=== PATIENT | male | born 2000 | race American Indian/Alaskan Native ===

== ENCOUNTER 2019-08-23 11:05 | Emergency (ER) | payer SELFPAY ==
[2019-08-23 11:25] VITALS: BP 144/87
[2019-08-23 11:51] LABS: Bilirubin,Urine NEG (Negative); Blood,Urine NEG (Negative); Color,Urine Yellow (Yellow); Hyaline Casts,Urine 1 /LPF; Mucus,Urine 3+ /HPF; Urobilinogen,Urine < 2.0 mg/dL (<2.0)
[2019-08-23 11:58] LABS: Amphetamine Screen,Urine PRESUMPTIVE NEGATIVE; Benzodiazepines Screen,Urine PRESUMPTIVE NEGATIVE; Cocaine Screen,Urine PRESUMPTIVE NEGATIVE; Methadone Screen,Urine PRESUMPTIVE NEGATIVE; Opiate Screen,Urine PRESUMPTIVE NEGATIVE
[2019-08-23 12:21] LABS: Cannabinoid Screen,Urine PRESUMPTIVE POSITIVE
[2019-08-23 12:29] LABS: Basophils # (Auto) 0.1 K/mm3 (0.0-0.1); Basophils % (Auto) 0.7 % (0.0-1.8); Hematocrit 45.9 % (35.5-45.6); Hemoglobin 15.4 gm/dl (11.8-15.2); Lymphocytes # (Auto) 1.1 K/mm3 (1.2-5.4); Lymphocytes % (Auto) 14.5 % (13.4-35.0); Mean Corpuscular HGB Conc 34 % (32-34); Mean Corpuscular Volume 95 fl (84-94); Monocytes # (Auto) 0.5 K/mm3 (0.0-0.8); Monocytes % (Auto) 6.5 % (0.0-7.3); Platelet Count 162 K/mm3 (140-440); Red Blood Count 4.81 M/mm3 (3.65-5.03); Red Cell Distribution Width 14.2 % (13.2-15.2)
[2019-08-23 12:56] LABS: BUN/Creatinine Ratio 11; Blood Urea Nitrogen 13 mg/dL (9-20); Calcium 9.5 mg/dL (8.4-10.2); Hemolysis Index 11
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
== END 2019-08-23 17:52 ==
LOC: ED 11:05
DX: F23 Brief psychotic disorder (principal); F12.10 Cannabis abuse, uncomplicated; Z88.1 Allergy status to other antibiotic agents; Z79.899 Other long term (current) drug therapy
CPT/HCPCS: 36415; 80048; 80307; 80320; 81001; 85025; G0480

== ENCOUNTER 2020-05-01 16:27 | Emergency (ER) | payer SELFPAY ==
--- NOTE | 2020-05-01 17:33 | Emergency Department Report ---
HPI - General Chief Complaint: Psych Time Seen by Provider: 05/01/20 17:21 - HPI HPI: This is a 20-year-old -Irish male presents to the emergency department for a mental health evaluation. Patient was brought in by [facility] and PD after he was found leaning up against a car at a car dealership, nonverbal. The patient's mother is currently at bedside and says that she brought him in yesterday morning to be seen for her concerns of psychosis but he left prior to seeing a healthcare provider and "I did not see him again until now." It is unknown where the patient went all night until he was found at the car dealership. Mom says that he has previously been diagnosed with schizophrenia after being transported to [facility]. I did see this patient in August of this year for some acute psychosis. The patient is not on any medication. The patient is a poor historian secondary to his current medical and/or psychiatric condition as he is nonverbal. ED Past Medical Hx - Past Medical History Hx Psychiatric Treatment: (possible schizophrenia?) - Social History Smoking Status: Unknown if ever smoked ED Review of Systems ROS: Stated complaint: AMS Other details as noted in HPI Comment: Unobtainable due to pts medical conditions Physical Exam - Physical Exam Vital Signs: Vital Signs 05/01/20 16:39 Temperature 99.1 F Pulse Rate 106 H Respiratory 18 Rate Blood Pressure 146/101 O2 Sat by Pulse 97 Oximetry Physical Exam: GENERAL: The patient is well-developed well-nourished. HENT: Normocephalic. Atraumatic. Patient has moist mucous membranes. EYES: Extraocular motions are intact. NECK: Supple. Trachea is midline. CHEST/LUNGS: Clear to auscultation. There is no respiratory distress noted. HEART/CARDIOVASCULAR: Regular. There is no tachycardia. ABDOMEN: Abdomen is soft, nontender. Patient has normal bowel sounds. SKIN: Skin is warm and dry. NEURO: Patient is awake and is cooperative, but is currently nonverbal. MUSCULOSKELETAL: There is no tenderness or deformity. ED Course Vital Signs 05/01/20 16:39 Temperature 99.1 F Pulse Rate 106 H Respiratory 18 Rate Blood Pressure 146/101 O2 Sat by Pulse 97 Oximetry ED Medical Decision Making - Lab Data Result diagrams: 05/01/20 17:31 05/01/20 17:31 - Medical Decision Making This patient was brought in by EMS/PD after he was found leaning against a car at a car dealership. This is about 24 hours after the patient went "missing." It appears that this patient has some history of schizophrenia. At the time of my examination he is nonverbal. The patient will follow some commands. The patient is looking around, tracking with his eyes. He is able to eat a sandwich, use the bathroom, and perform ADLs appropriately. However, given the patient's recent behavior, and being nonverbal, the patient does appear to be exhibiting some signs of acute psychosis and meet criteria to be made a 1013. He was seen by the psychiatric entertainment centre manager, Suzanne, who agrees with this assessment and the plan for inpatient stabilization. Patient's labs have been mostly unremarkable. His vital signs have been reassuring throughout his ED course. The patient is medically cleared for psychiatric placement. Critical Care Time: No Critical care attestation.: If time is entered above; I have spent that time in minutes in the direct care of this critically ill patient, excluding procedure time. ED Disposition Clinical Impression: Acute psychosis Disposition: DC/TX-65 PSY HOSP/PSY UNIT Is pt being admited?: No Condition: Stable Time of Disposition: 02:17
[2020-05-01 18:35] LABS: Bilirubin,Urine NEG (Negative); Blood,Urine SM (Negative); Color,Urine Yellow (Yellow); Mucus,Urine 3+ /HPF
[2020-05-01 18:41] LABS: Amphetamine Screen,Urine Negative; Benzodiazepines Screen,Urine Negative; Cocaine Screen,Urine Negative; Methadone Screen,Urine Negative; Opiate Screen,Urine Negative
[2020-05-01 19:19] LABS: Cannabinoid Screen,Urine Positive
[2020-05-01 19:44] LABS: Hematocrit 46.8 % (35.5-45.6); Hemoglobin 15.6 gm/dl (11.8-15.2); Mean Corpuscular HGB Conc 33 % (32-34); Mean Corpuscular Volume 98 fl (84-94); Platelet Count 181 K/mm3 (140-440); Red Blood Count 4.77 M/mm3 (3.65-5.03); Red Cell Distribution Width 14.8 % (13.2-15.2)
[2020-05-01 19:45] LABS: BUN/Creatinine Ratio 18; Blood Urea Nitrogen 20 mg/dL (9-20); Calcium 10.3 mg/dL (8.4-10.2); Hemolysis Index 4
[2020-05-02 01:04] LABS: Anisocytosis 1+; Band Neutrophils # (Manual) 0.1 K/mm3; Basophils % (Manual) 0 % (0.0-1.8); Eosinophils % (Manual) 0 % (0.0-4.3); Platelet Estimate Consistent w Auto; Total Cells Counted 100
--- NOTE | 2020-05-02 11:34 | Consultation ---
History of Present Illness - Reason for Consult Consult date: 05/02/20 Reason for consult: psychosis - History of Present Psychiatric Illness Vernon Apodaca is a 20y/o male patient was brought to the ER after he was found leaning up against a car at a car dealership. The patient was found nonverbal. I attempted to interview the patient today. Mom was at bedside with the patient. The patient refused to speak during the interview. He just stared at me intensely. Mom says back in August the patient smoked marijuana. She says at that time he appeared to have a "psychotic episode." SHe says he became paranoid and started seeing "demons." Mom states prior to August the patient had never had any psychiatric history or incidents. She says at that time he was placed on a haldol injection. She says he was diagnosed with schizophrenia. She says after that the patient did not go back for the injection, stating he does not want it. She says he has taken no medications since then. Mom states that despite the patient not being on any medication, he has been fine until now. PAST PSYCHIATRIC HISTORY (per mom) Diagnoses: schizophrenia Suicide attempts or Self-harm behavior: Denies Prior psychiatric hospitalizations: Once Substance Abuse history: THC Previous psychiatric medications tried: Haldol Outpatient treatment: Denies PAST MEDICAL HISTORY: None reported Family Psychiatric History: None reported or documented SOCIAL HISTORY (per mom) Marital Status: Single Living Arrangements: with mom Employment Status: Employed Access to guns/weapons: Denies Education: high school grand History of Abuse: none reported Legal History: none reported REVIEW OF SYSTEMS Unable to assess MENTAL STATUS EXAMINATION Unable to adequately assess Assessment Schizoaffective Disorder Substance Induced Psychosis [employer] PL[employer] 1013 Start Haldol 0.5mg po BID Start Trazodone 50mg po qhs Sitter: Defer to primary Medical: Per primary Disposition: Recommend acute inpatient psychiatric treatment Will continue to follow. Thank you for this consult. Medications and Allergies Allergies Allergy/AdvReac Type Severity Reaction Status Date / Time amoxicillin Allergy Anaphylaxis Verified 08/23/19 11:30 Mental Status Exam - Vital signs Last Vital Signs Temp 96.8 F L 05/02/20 09:36 Pulse 78 05/02/20 09:36 Resp 20 05/02/20 09:36 BP 141/91 05/02/20 09:36 Pulse Ox 97 05/02/20 09:36 Results Result Diagrams: 05/01/20 17:31 05/01/20 17:31 Abnormal lab results 05/01/20 05/01/20 05/01/20 Range/Units 17:31 17:31 17:31 Hgb (11.8-15.2) gm/dl Hct (35.5-45.6) % MCV (84-94) fl MCH (28-32) pg Seg Neuts % (Manual) (40.0-70.0) % Lymphocytes % (Manual) (13.4-35.0) % Lymphocytes # (Manual) (1.2-5.4) K/mm3 Calcium 10.3 H (8.4-10.2) mg/dL Ur Specific [place] (1.003-1.030) Salicylates < 0.3 L (2.8-20.0) mg/dL Acetaminophen 5.0 L (10.0-30.0) ug/mL 05/01/20 05/01/20 Range/Units 17:31 Unknown Hgb 15.6 H (11.8-15.2) gm/dl Hct 46.8 H (35.5-45.6) % MCV 98 H (84-94) fl MCH 33 H (28-32) pg Seg Neuts % (Manual) 85.0 H (40.0-70.0) % Lymphocytes % (Manual) 9.0 L (13.4-35.0) % Lymphocytes # (Manual) 0.8 L (1.2-5.4) K/mm3 Calcium (8.4-10.2) mg/dL Ur Specific [place] 1.035 H (1.003-1.030) Salicylates (2.8-20.0) mg/dL Acetaminophen (10.0-30.0) ug/mL All other labs normal.
[2020-05-02] MEDS ORDERED: HALOPERIDOL 1 MG TAB PO SCH (12:00)
[2020-05-02 20:22] VITALS: BP 159/83
[2020-05-02] MEDS ORDERED: traZODone 50 MG TAB PO SCH (22:00)
== END 2020-05-02 22:22 ==
LOC: ED 16:27
DX: F23 Brief psychotic disorder (principal); Z88.1 Allergy status to other antibiotic agents
CPT/HCPCS: 36415; 80048; 80307; 80320; 81001; 85007; 85025; G0480